=== PATIENT | female | born 1975 | race Caucasian/White ===

== ENCOUNTER 2016-11-29 16:09 | Emergency (ER) | payer MEDICAID, OTHER ==
[~2016-11-29] VITALS: Ht 154.9 cm; Wt 67.0 kg
[2016-11-29 16:13] VITALS: Ht 154.9 cm; Wt 67.0 kg
[2016-11-29 18:57] LABS: URINE BLOOD (Dip) POC Trace-lysed (NEGATIVE)
[2016-11-29] MEDS ORDERED: CEPH-443 PO (19:27)
[2016-11-29] MEDS ORDERED: IBUP-1542 PO (19:27)
[2016-11-29] MEDS ORDERED: CEPHALEXIN 500 MG CAP PO ONE (19:30)
[2016-11-29] MEDS ORDERED: IBUPROFEN 600 MG TAB PO ONE (19:30)
--- NOTE | 2016-11-29 19:31 | ERD ---
ER Documentation Chief Complaint Date/Time DATE: 11/29/16 TIME: 19:28 Chief Complaint BACK PAIN SINCE YESTERDAY HPI This 41-year-old female presents with a one-day history of multiple complaints. She has low back pain upper back pain, bitemporal headache sensation of sore throat. She may have had tactile fevers but no measured temperature and no fever at triage. She might have pain in the bilateral lower abdomen as well. Right equal to left. ROS All systems reviewed and are negative except as per history of present illness. Medications Home Meds Active Scripts Ibuprofen* (Motrin*) 600 Mg Tab, 600 MG PO Q6, #20 TAB Prov:JAYDA RICE MD 11/29/16 Cephalexin* (Keflex*) 500 Mg Capsule, 500 MG PO QID for 10 Days, CAP Prov:JAYDA RICE MD 11/29/16 Physical Exam Vitals Vital Signs Date Time Temp Pulse Resp B/P Pulse Ox O2 Delivery O2 Flow Rate FiO2 11/29/16 16:13 98.1 78 18 134/82 99 Physical Exam Const: [], [id number]. Head: Atraumatic reproducible bitemporal headache without pulsatile masses. Eyes: Normal Conjunctiva ENT: Normal External Ears, Nose and Mouth. Pharynx normal. Neck: Full range of motion..~ No meningismus. Resp: Clear to auscultation bilaterally Cardio: Regular rate and rhythm, no murmurs Abd: Soft, non tender, non distended. Normal bowel sounds Skin: No petechiae or rashes Back: No midline or flank tenderness. Mild generalized tenderness up and down the thoracic or lumbar spine. Ext: No cyanosis, or edema Neur: Awake and alert Psych: Normal Mood and Affect Results 24 hrs Laboratory Tests Test 11/29/16 19:04 Bedside Urine pH (LAB) 6.5 Bedside Urine Protein (LAB) Negative Bedside Urine Glucose (UA) Negative Bedside Urine Ketones (LAB) Negative Bedside Urine Blood Trace-lysed Bedside Urine Nitrite (LAB) Negative Bedside Urine Leukocyte Esterase (L 1+ Current Medications Medications (Trade) Dose Ordered Sig/Madi Route PRN Reason Start Time Stop Time Status Last Admin Dose Admin Ibuprofen (Motrin) 600 mg ONCE ONCE PO 11/29/16 19:30 11/29/16 19:31 Cephalexin (Keflex) 500 mg ONCE ONCE PO 11/29/16 19:30 11/29/16 19:31 Procedures/MDM HCG is negative. Urine shows leukocytes. Patient presents with multiple complaints including low back pain, upper back pain, symptoms of likely tension headache and sore throat and possible dysuria and lower abdominal pain. Current signs or symptoms do not suggest appendicitis, sepsis, respiratory distress,. Patient will be treated for UTI although multitude of symptoms suggest possible viral illness. Patient is advised to follow-up with primary doctor this week return to the ER for new or worsening symptoms. The patient was stable with no new complaints during the ER course. Clinically, there is no current evidence to suggest meningitis, sepsis, acute abdomen, pneumonia, acute coronary syndrome, pulmonary embolism, or any other emergent condition appearing to require further evaluation or hospitalization. The patient should certainly return for any new or worsening symptoms per the aftercare instructions. They should otherwise follow-up with her primary care doctor for reevaluation this week. Departure Diagnosis: Primary Impression: Back pain Back pain location: low back pain Chronicity: unspecified Back pain laterality: bilateral Sciatica presence: without sciatica Qualified Code: M54.5 - Bilateral low back pain without sciatica, unspecified chronicity Condition: Stable Patient Instructions: Understanding Urinary Tract Infections (UTIs), Back Pain (Acute Or Chronic) [facility] Usted se lynn hecho un examen mdico de control que le indica que no est en maryanne condicin que requiera tratamiento urgente en el Departamento de Emergencia. Un estudio ms profundo y el tratamiento de espinoza condicin pueden esperar sin ningn riesgo hasta que usted sea atendida/o en el consultorio de espinoza mdico o maryanne cl daina. Es responsabilidad suya arreglar maryanne yaquelin para el seguimiento del tyler. MANEJO DE CONDICIONES NO URGENTES EN EL FUTURO 1) Si usted tiene un mdico de atencin primaria: Usted debera llamar a espinoza mdico de atencin primaria antes de venir al departamento de emergencia. Despus de las horas de consultorio, espinoza doctor o espinoza asociado/a est disponible por telfono. El mdico o enfermero de vikki en el servicio telefnico puede asesorarle por bimal medio para atender el problema, o tyler contrario se puede programar maryanne yaquelin. 2) Si usted no tiene un mdico de atencin primaria: Llame al mdico o clnica de referencia que aparece abajo raman las horas de consultorio para hacer maryanne yaquelin para que le vean. CLINICAS: [facility] [phone] [facility] [phone] [facility] [phone] [facility] [phone] [facility] [phone] [address] [facility] [phone] [address] Additional Instructions: hay infeccion en orina. Examines normal hoy. Cheque otro vez con espinoza doctor primario en el proximo ruvalcaba or regresa para mas o nueva simptomas. JAYDA RICE MD Nov 29, 2016 19:31
[2016-11-29 19:56] VITALS: BP 138/81; PULSE 84; RESP 20
== END 2016-11-29 19:57 | disposition home or self-care (01) ==
LOC: FTE 16:09
DX: M54.5 Low back pain (principal)
CPT/HCPCS: 81003; Z7502; Z7610; 99283

== ENCOUNTER 2017-04-26 10:44 | Emergency (ER) | END 2017-04-26 13:22 | disposition home or self-care (01) ==

== ENCOUNTER 2017-06-30 15:24 | Emergency (ER) | END 2017-06-30 18:58 | disposition home or self-care (01) ==

== ENCOUNTER 2017-07-11 12:41 | Emergency (ER) | END 2017-07-11 17:11 | disposition home or self-care (01) ==

== ENCOUNTER 2017-11-02 15:52 | Emergency (ER) | END 2017-11-02 18:54 | disposition home or self-care (01) ==